=== PATIENT | female | born 2000 | race African-American/Black ===

== ENCOUNTER 2022-10-17 14:50 | Emergency (ER) | payer MEDICAID ==
[~2022-10-17] VITALS: Ht 167.6 cm; Wt 114.0 kg
[2022-10-17 15:08] VITALS: TEMP 98.5; O2SAT 98
[2022-10-17 16:00] VITALS: BP 150/70; PULSE 90; RESP 16
[2022-10-17] MEDS ORDERED: KETOROLAC 30MG/ML VIAL IM ONE (16:00)
[2022-10-17] MEDS ORDERED: HYDROCODONE/ACETAMINOPHEN 5/325MG TABLET PO ONE (16:00)
[2022-10-17] MEDS ORDERED: ACET-2708 MT (17:00)
[2022-10-17] MEDS ORDERED: LIDO700A15 TP (17:00)
[2022-10-17] MEDS ORDERED: NAPR275T96 MT (17:00)
== END 2022-10-17 17:57 | disposition home or self-care (01) ==
LOC: ER 14:50
DX: M54.50 Low back pain, unspecified (principal)
CPT/HCPCS: 99283; 81025; 73030; 96372; J1885